=== PATIENT | male | born 1950 | race Caucasian/White ===

== ENCOUNTER 2017-04-16 11:20 | Emergency (ER) | payer MEDICARE, OTHER ==
[2017-04-16] MEDS ORDERED: Sodium Chloride 0.9% 10 ML Syringe FLUSH PRN ×2 (11:31)
--- NOTE | 2017-04-16 11:35 | EDM.PDOC ---
ED HPI GENERAL MEDICAL PROBLEM - General Chief Complaint: Neuro Symptoms/Deficits Stated Complaint: POSSIBLE STROKE, SPEECH AFFECTED Time Seen by Provider: 04/16/17 11:30 Source of Information: Reports: Patient, Family, RN Notes Reviewed History Limitations: Reports: Physical Impairment - History of Present Illness INITIAL COMMENTS - FREE TEXT/NARRATIVE: 66-year-old gentleman presents emergency department day complaint of difficulty speaking, he states this started early this morning at 10:00 AM when he had difficulty finding words has difficulty with pronunciation of some words, he states for example he can spell metformin but he cannot say the word metformin or he tries to say the word medication but chooses to say the word pills instead. No other symptoms at this time no other neurologic deficit - Related Data Allergies Allergy/AdvReac Type Severity Reaction Status Date / Time No Known Allergies Allergy Verified 04/16/17 11:37 Home Meds: Home Meds Amitriptyline [Elavil] 25 mg PO BEDTIME 04/16/17 [History] Benazepril [Lotensin] 5 mg PO BEDTIME 04/16/17 [History] Dyrenium 50 Mg 50 mg PO DAILY 04/16/17 [History] Exenatide Microspheres [Bydureon] 2 mg SQ WEEKLY 04/16/17 [History] Ezetimibe [Zetia] 10 mg PO DAILY 04/16/17 [History] Insulin Glarg,Human.Rec.Analog [LantUS Solostar] 50 unit SQ BID 04/16/17 [ History] Lovastatin 40 mg PO BEDTIME 04/16/17 [History] Testosterone [Androgel] 2.5 gm TD ASDIRECTED 04/16/17 [History] glipiZIDE [Glucotrol] 10 mg PO DAILY 04/16/17 [History] metFORMIN HCl [Metformin HCl] 1,000 mg PO BID 04/16/17 [History] Past Medical History Cardiovascular History: Reports: High Cholesterol, Hypertension Endocrine/Metabolic History: Reports: Diabetes, Type II Social & Family History - Tobacco Use Smoking Status *Q: Never Smoker ED ROS GENERAL - Review of Systems Review Of Systems: See Below Constitutional: Reports: No Symptoms HEENT: Reports: No Symptoms Respiratory: Reports: No Symptoms Cardiovascular: Reports: No Symptoms GI/Abdominal: Reports: No Symptoms : Reports: No Symptoms Musculoskeletal: Reports: No Symptoms Skin: Reports: No Symptoms Neurological: Reports: Trouble Speaking ED EXAM, NEURO - Physical Exam Exam: See Below Text/Narrative:: General: Male, not in any distress, alert and oriented x3 HEENT: head is atraumatic normocephalic, eyes pupils equal round reactive to light, sclera clear no conjunctivitis appreciated, extraocular eye movements intact. Ears tympanic membranes clear and hoskins landmarks and light reflex are present bilaterally canals are clear. Nose no septal deviation, nares are clear, no blood present. Mouth mucosa is moist and pink no erythema or exudate noted in soft palate, tongue is midline uvula is midline, dentition is intact. Neck: Supple no thyromegaly no tracheal deviation. Nodes: Cervical nodes subclavicular nodes nontender no palpable lymphadenopathy noted. Lungs: clear to auscultation bilaterally with symmetrical respirations, no adventitious noise appreciated. CV: Regular rate and rhythm S1 and S2 appreciated no murmurs rubs or gallops noted. Abdomen: Soft, nontender, no palpable masses or organomegaly appreciated, no distention no guarding bowel sounds are present, . Neuro: Cranial nerves II through XII grossly intact, power is 5 out 5 in upper and lower extremities, patellar reflex, biceps reflex +2 can do finger to nose without difficulty no dysdiadochokinesis no difficulty with rapid alternating movements can do [id number] without difficulty no focal neurologic deficit Skin: Warm and dry, intact Extremities: No lower extremity edema appreciated, Course - Vital Signs Last Recorded V/S: Last Vital Signs Temp 95.9 F 04/16/17 11:29 Pulse 87 04/16/17 11:42 Resp 16 04/16/17 11:42 BP 130/89 04/16/17 11:42 Pulse Ox 96 04/16/17 11:42 - Orders/Labs/Meds Orders: Active Orders 24 hr Category Date Time Status EKG Documentation Completion [RC] ASDIRECTED Care 04/16/17 11:32 Active Peripheral IV Care [RC] . DIRECTED Care 04/16/17 11:32 Active Sodium Chloride 0.9% [Saline Flush] Med 04/16/17 11:31 Active 10 ml FLUSH ASDIRECTED PRN Sodium Chloride 0.9% [Saline Flush] Med 04/16/17 11:31 Active 10 ml FLUSH ASDIRECTED PRN Peripheral IV Insertion Adult [OM.PC] Urgent Oth 04/16/17 11:31 Ordered EKG 12 Lead [EK] Urgent Ther 04/16/17 11:31 Ordered Medication Orders Sodium Chloride (Saline Flush) 10 ml FLUSH ASDIRECTED PRN PRN Reason: Keep Vein Open Sodium Chloride (Saline Flush) 10 ml FLUSH ASDIRECTED PRN PRN Reason: Keep Vein Open Labs: Laboratory Tests 04/16/17 04/16/17 04/16/17 Range/Units 11:42 11:42 11:42 WBC 6.2 (4.5-11.0) K/uL RBC 4.95 (4.30-5.90) M/uL Hgb 15.6 H (12.0-15.0) g/dL Hct 45.7 (40.0-54.0) % MCV 92 (80-98) fL MCH 32 H (27-31) pg MCHC 34 (32-36) % Plt Count 179 (150-400) K/uL Neut % (Auto) 56 (36-66) % Lymph % (Auto) 21 L (24-44) % [place] % (Auto) 16 H (2-6) % Eos % (Auto) 6 H (2-4) % Baso % (Auto) 1 (0-1) % PT 11.2 (9.5-12.0) sec INR 1.04 (0.80-1.20) APTT 24.0 L (27.0-36.0) sec Sodium 137 L (140-148) mmol/L Potassium 4.0 (3.6-5.2) mmol/L Chloride 101 (100-108) mmol/L Carbon Dioxide 31 (21-32) mmol/L Anion Gap 9.0 (5.0-14.0) mmol/L BUN 21 H (7-18) mg/dL Creatinine 1.5 H (0.8-1.3) mg/dL Est Cr Clr Drug Dosing 57.90 mL/min Estimated GFR (MDRD) 47 L (>60) Glucose 127 H (74-106) mg/dL Calcium 9.5 (8.5-10.1) mg/dL Total Bilirubin 0.4 (0.2-1.0) mg/dL AST 34 (15-37) U/L ALT 63 (12-78) U/L Alkaline Phosphatase 62 (46-116) U/L Total Protein 7.2 (6.4-8.2) g/dL Albumin 3.6 (3.4-5.0) g/dL Globulin 3.6 H (2.3-3.5) g/dL Albumin/Globulin Ratio 1.0 L (1.2-2.2) Meds: Medications Generic Name Dose Route Start Last Admin Trade Name Freq PRN Reason Stop Dose Admin Sodium Chloride 10 ml 04/16/17 11:31 Saline Flush FLUSH ASDIRECTED PRN Keep Vein Open Sodium Chloride 10 ml 04/16/17 11:31 Saline Flush FLUSH ASDIRECTED PRN Keep Vein Open Departure - Departure Time of Disposition: 12:47 Disposition: DC/Tfer to Acute Hospital 02 Condition: Good Clinical Impression: Difficulty speaking - Discharge Information Referrals: Calvin Suarez MD [Primary Care Provider] - Forms: ED Department Discharge - My Orders Last 24 Hours: My Active Orders 04/16/17 11:31 Sodium Chloride 0.9% [Saline Flush] 10 ml FLUSH ASDIRECTED PRN Sodium Chloride 0.9% [Saline Flush] 10 ml FLUSH ASDIRECTED PRN Peripheral IV Insertion Adult [OM.PC] Urgent EKG 12 Lead [EK] Urgent 04/16/17 11:32 EKG Documentation Completion [RC] ASDIRECTED Peripheral IV Care [RC] . DIRECTED - Assessment/Plan Last 24 Hours: My Active Orders 04/16/17 11:31 Sodium Chloride 0.9% [Saline Flush] 10 ml FLUSH ASDIRECTED PRN Sodium Chloride 0.9% [Saline Flush] 10 ml FLUSH ASDIRECTED PRN Peripheral IV Insertion Adult [OM.PC] Urgent EKG 12 Lead [EK] Urgent 04/16/17 11:32 EKG Documentation Completion [RC] ASDIRECTED Peripheral IV Care [RC] . DIRECTED Plan: Assessment Acuity = acute Site and laterality = dysarthria with specific loss of certain work Etiology = unclear etiology Manifestations = none Location of injury = Home Lab values = CBC unremarkable creatinine elevated 1.5 consistent with chronic renal failure stage GIII a EKG demonstrates a sinus rhythm no ST changes or elevation noted CT scan of the head is unremarkable for any acute process Plan Called discussed case with neurology decision unit rn at [facility] recommended not a candidate for TPA at this time and is not clearly a cerebrovascular accident he is able to spell words but cannot pronounce them please able to write words. He'll be transported to the emergency department at [facility] for an MRI and further evaluation he'll be transported via EMS ground Patient was in agreement with the plan all questions were answered,. This note was dictated using [employer] voice recognition software please call with any questions.
--- NOTE | 2017-04-16 12:04 | CT ---
Head wo Cont INDICATION: Dysarthria Total DLP 963 COMPARISON: None FINDINGS: No acute intracranial hemorrhage, mass, or edema. Generalized cerebral and cerebellar volum e loss. 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 Minimal mucosal thickening i n the visualized left maxillary sinus. Remainder unremarkable. IMPRESSION: No acute intracranial abnormality.
== END 2017-04-16 13:31 ==
LOC: JP.ED 11:20
DX: R47.1 Dysarthria and anarthria (principal); E11.9 Type 2 diabetes mellitus without complications; I10 Essential (primary) hypertension; E78.00 Pure hypercholesterolemia, unspecified; Z79.4 Long term (current) use of insulin; Z79.899 Other long term (current) drug therapy
CPT/HCPCS: 36415; 70450; 80053; 85025; 85610; 85730; 93005; 99285; J7050; 93010